=== PATIENT | female | born 1970 | race African-American/Black ===

== ENCOUNTER 2020-04-09 12:51 | Inpatient (IN) | payer OTHER ==
[2020-04-09 13:16] VITALS: BMI 46.8
[2020-04-09] MEDS ORDERED: chlordiazePOXIDE HCL 25 MG CAPSULE PO ONE (14:53)
[2020-04-09] MEDS ORDERED: SODIUM CHLORIDE 0.9% 500 ML INFUS.BAG IV ONE (15:00)
[2020-04-09] MEDS ORDERED: diazePAM CARPU-JECT 10 MG/2 ML DISP.SYRIN IVPUSH ONE (15:00)
[2020-04-09] MEDS ORDERED: THIAMINE HCL 200 MG/2 ML VIAL IVPB ONE (15:02)
[2020-04-09] MEDS ORDERED: chlordiazePOXIDE HCL 25 MG CAPSULE ONE ×2 (15:46→22:48)
[2020-04-09 15:53] LABS: BASO % 0.7 % (0-2.0); EOS % 1.1 % (0-4.5); HEMATOCRIT 37.8 % (32.4-45.2); HEMOGLOBIN 12.5 GM/dL (10.7-15.3); LYMPH % 24.8 % (8-40); MCH 26.4 pg (25.7-33.7); MCHC 33.1 g/dl (32.0-36.0); MEAN CELL VOLUME 79.6 fl (80-96); MEAN PLT VOLUME 7.4 fl (7.5-11.1); MONO % 9.6 % (3.8-10.2); NEUT % 63.8 % (42.8-82.8); PLATELET COUNT 418 K/MM3 (134-434); RBC 4.74 M/mm3 (3.60-5.2); RDW 20.2 % (11.6-15.6); WHITE BLOOD COUNT 6.7 K/mm3 (4.0-10.0)
[2020-04-09 16:02] LABS: INR 1.07 (0.83-1.09); PROTHROMBIN TIME (PATIENT) 13.1 SEC (9.7-13.0)
[2020-04-09 16:03] LABS: EPI CELLS 17 /uL (0-25.1); HYALINE CASTS 1 /uL (0-3.1); URINE APPEARANCE CLEAR; URINE BACTERIA 307 /uL (0-1359); URINE BILIRUBIN NEGATIVE (NEGATIVE); URINE COLOR YELLOW; URINE GLUCOSE (UA) NEGATIVE (NEGATIVE); URINE KETONE TRACE (NEGATIVE); URINE LEUK ESTERASE TRACE (NEGATIVE); URINE NITRITE NEGATIVE (NEGATIVE); URINE PROTEIN TRACE (NEGATIVE); URINE RBC 10 /uL (0-23.9); URINE WBC 32 /uL (0-25.8)
[2020-04-09 16:08] LABS: CHLORIDE 104 mmol/L (98-107); HCG,QUALITATIVE URINE Negative; POTASSIUM 3.9 mmol/L (3.5-5.1); SODIUM 137 mmol/L (136-145)
[2020-04-09 16:10] LABS: CALCIUM 9.8 mg/dL (8.5-10.1)
[2020-04-09 16:11] LABS: ALBUMIN 4.2 g/dl (3.4-5.0); ANION GAP 7 MMOL/L (8-16); BLOOD UREA NITROGEN 14.3 mg/dL (7-18); CO2 26 mmol/L (21-32); GLUCOSE,RANDOM 116 mg/dL (74-106)
[2020-04-09 16:14] LABS: CREATININE 1.1 mg/dL (0.55-1.3); SGOT/AST 18 U/L (15-37); SGPT/ALT 17 U/L (13-61)
[2020-04-09 16:15] LABS: BILIRUBIN,TOTAL 0.3 mg/dL (0.2-1); TOT PROT 9.3 g/dl (6.4-8.2)
[2020-04-09 16:17] LABS: ALK PHOS 98 U/L (45-117)
[2020-04-09 16:19] LABS: N-TERMINAL BNP 91.1 pg/ml (5-125)
[2020-04-09] MEDS ORDERED: FOLIC ACID 1 MG TABLET (FP) ONE (22:48)
[2020-04-09] MEDS ORDERED: metoPROLOL SUCCINATE 25 MG TAB.SR.24H (FP) ONE (22:48)
[2020-04-09] MEDS ORDERED: THIAMINE HCL 100 MG TABLET (FP) ONE (22:48)
[2020-04-09] MEDS: chlordiazePOXIDE HCL 25 MG CAPSULE PO SCH (22:58)
[2020-04-09] MEDS: FOLIC ACID 1 MG TABLET (FP) PO SCH (22:58)
[2020-04-09] MEDS: THIAMINE HCL 100 MG TABLET (FP) PO SCH (22:58)
[2020-04-09] MEDS: metoPROLOL SUCCINATE 25 MG TAB.SR.24H (FP) PO SCH (22:58)
[2020-04-10] MEDS ORDERED: chlordiazePOXIDE HCL 25 MG CAPSULE ONE (06:02)
[2020-04-10] MEDS: chlordiazePOXIDE HCL 25 MG CAPSULE PO SCH (06:07)
[2020-04-10 07:17] LABS: BASO % 0.9 % (0-2.0); EOS % 2.3 % (0-4.5); HEMATOCRIT 35.3 % (32.4-45.2); HEMOGLOBIN 11.7 GM/dL (10.7-15.3); LYMPH % 21.1 % (8-40); MCH 26.7 pg (25.7-33.7); MCHC 33.2 g/dl (32.0-36.0); MEAN CELL VOLUME 80.4 fl (80-96); MEAN PLT VOLUME 7.5 fl (7.5-11.1); MONO % 12.6 % (3.8-10.2); NEUT % 63.1 % (42.8-82.8); PLATELET COUNT 357 K/MM3 (134-434); RBC 4.39 M/mm3 (3.60-5.2); RDW 20.1 % (11.6-15.6); WHITE BLOOD COUNT 5.1 K/mm3 (4.0-10.0)
[2020-04-10 07:35] LABS: CALCIUM 9.5 mg/dL (8.5-10.1)
[2020-04-10 07:36] LABS: ALBUMIN 3.6 g/dl (3.4-5.0); BLOOD UREA NITROGEN 9.8 mg/dL (7-18)
[2020-04-10 07:39] LABS: CREATININE 0.9 mg/dL (0.55-1.3)
[2020-04-10 07:41] LABS: BILIRUBIN,TOTAL 0.5 mg/dL (0.2-1); TOT PROT 8.2 g/dl (6.4-8.2)
[2020-04-10 07:53] VITALS: TEMP 98.3
[2020-04-10] MEDS ORDERED: metoPROLOL SUCCINATE 25 MG TAB.SR.24H (FP) ONE (10:43)
[2020-04-10] MEDS ORDERED: THIAMINE HCL 100 MG TABLET (FP) ONE (10:43)
[2020-04-10] MEDS ORDERED: FOLIC ACID 1 MG TABLET (FP) ONE (10:44)
[2020-04-10] MEDS: FOLIC ACID 1 MG TABLET (FP) PO SCH (10:46)
[2020-04-10] MEDS: THIAMINE HCL 100 MG TABLET (FP) PO SCH (10:46)
[2020-04-10] MEDS: metoPROLOL SUCCINATE 25 MG TAB.SR.24H (FP) PO SCH (10:46)
[2020-04-10 12:38] VITALS: BP 160/89; PULSE 88
== END 2020-04-10 12:00 | disposition left against medical advice (07) | DRG 305 ==
LOC: JER 12:51 → JERBED 16:20
PROVIDERS: ADMIT Internal Medicine; ATTEND Internal Medicine
PROC: HZ2ZZZZ Detoxification Services for Substance Abuse Treatment (ICD-10-PCS; principal; 2020-04-09)
DX: I16.0 Hypertensive urgency (principal); Z68.42 Body mass index [BMI] 45.0-49.9, adult; F10.139 Alcohol abuse with withdrawal, unspecified; I10 Essential (primary) hypertension; Y90.0 Blood alcohol level of less than 20 mg/100 ml; F41.8 Other specified anxiety disorders; E66.9 Obesity, unspecified; R00.0 Tachycardia, unspecified
CPT/HCPCS: 36415; 71046-TC-FY; 80053; 80307; 81003; 82140; 82550; 82553; 83036; 83880; 84443; 84484; 84703; 85025; 85610; 93005; 93010; 99285-25; C9803; U0003